=== PATIENT | male | born 1995 | race African-American/Black ===

== ENCOUNTER 2019-03-25 16:29 | Emergency (ER) | payer OTHER ==
[~2019-03-25] VITALS: Ht 160 cm; Wt 61.2 kg
[~2019-03-25 16:29] MED LIST: CEFADROXIL500 M1 PO; MOTRIN800 MG PO; NKHM; OMNICEF PO; inhaler
[2019-03-25 16:33] VITALS: BP 147/77
[2019-03-25 17:09] LABS: BASO % 0.5 % (0.0-1.0); EOS # 0.1 10*3/uL (0.0-0.4); EOS % 1.2 % (1.0-4.0); HEMATOCRIT 47.1 % (42.0-52.0); HEMOGLOBIN 16.1 g/dl (14.0-18.0); LYMPH # 1.6 10*3/uL (1.3-4.4); MEAN CELL VOLUME 87.2 fl (80.0-94.0); MEAN CORPUSCULAR HGB 29.8 pg (27.0-31.0); MEAN CORPUSCULAR HGB CONC 34.2 g/dl (33.0-37.0); MEAN PLATELET VOLUME 10.1 fl (9.6-12.3); MONO # 0.5 10*3/uL (0.1-1.0); NEUT # 5.3 10*3/uL (2.3-7.9); NEUT % 71.2 % (47.0-73.0); PLATELET COUNT AUTOMATED 174 10*3/uL (130-400); RED CELL DISTRI WIDTH 12.6 % (0-14.5); WHITE BLOOD COUNT 7.5 10*3/uL (4.8-10.8)
[2019-03-25 17:28] LABS: ALBUMIN 4.8 gm/dl (3.1-4.5); ALKALINE PHOSPHATASE 56 U/L (45-117); BUN 10 mg/dl (7-24); CHLORIDE 105 mmol/L (98-107); CREATININE 0.89 mg/dL (0.70-1.30); LIPASE 69 U/L (73-393); POTASSIUM 3.5 mmol/L (3.5-5.1); SGOT/AST 28 IU/L (3-35); SGPT/ALT 32 U/L (12-78); SODIUM 137 mmol/L (136-145); TOTAL PROTEIN 8.5 gm/dL (6.4-8.2)
[2019-03-25] MEDS ORDERED: DICYCLOMINE HCL10 MG PO (18:44)
== END 2019-03-25 18:54 | disposition home or self-care (01) ==
LOC: ED 16:29
PROVIDERS: Physician Assistant
DX: R19.7 Diarrhea, unspecified (principal); R11.2 Nausea with vomiting, unspecified; Z88.8 Allergy status to other drugs, medicaments and biological substances; Z79.899 Other long term (current) drug therapy

== ENCOUNTER 2019-12-10 15:05 | Emergency (ER) | payer OTHER ==
[~2019-12-10] VITALS: Ht 162.5 cm; Wt 72.6 kg
[~2019-12-10 15:05] MED LIST changes: +DICYCLOMINE HCL10 MG PO
[2019-12-10 15:30] VITALS: BP 124/54
[2019-12-10 16:41] LABS: BASO # 0.1 10*3/uL (0.0-0.1); BASO % 1.4 % (0.0-1.0); EOS # 0.1 10*3/uL (0.0-0.4); EOS % 2.5 % (1.0-4.0); HEMATOCRIT 42.4 % (42.0-52.0); LYMPH # 1.3 10*3/uL (1.3-4.4); LYMPH % 30.1 % (27.0-41.0); MEAN CELL VOLUME 89.3 fl (80.0-94.0); MEAN CORPUSCULAR HGB 29.7 pg (27.0-31.0); MEAN CORPUSCULAR HGB CONC 33.3 g/dl (33.0-37.0); MEAN PLATELET VOLUME 10.2 fl (9.6-12.3); MONO # 0.5 10*3/uL (0.1-1.0); MONO % 11.6 % (3.0-9.0); NEUT # 2.3 10*3/uL (2.3-7.9); NEUT % 53.9 % (47.0-73.0); PLATELET COUNT AUTOMATED 164 10*3/uL (130-400); RED BLOOD COUNT 4.75 10*6/uL (4.50-5.90); RED CELL DISTRI WIDTH 12.6 % (0-14.5); WHITE BLOOD COUNT 4.3 10*3/uL (4.8-10.8)
[2019-12-10 16:56] LABS: ALBUMIN 3.9 gm/dl (3.1-4.5); ALKALINE PHOSPHATASE 43 U/L (45-117); BUN 15 mg/dl (7-24); CHLORIDE 107 mmol/L (98-107); CREATININE 0.81 mg/dL (0.70-1.30); POTASSIUM 3.9 mmol/L (3.5-5.1); SGOT/AST 19 IU/L (3-35); SGPT/ALT 22 U/L (12-78); SODIUM 135 mmol/L (136-145); TOTAL PROTEIN 7.3 gm/dL (6.4-8.2)
[2019-12-10] MEDS ORDERED: ZOFRAN4 MG PO (18:06)
== END 2019-12-10 19:59 | disposition home or self-care (01) ==
LOC: ED 15:05
PROVIDERS: Nurse Practitioner
DX: K29.70 Gastritis, unspecified, without bleeding (principal); B34.9 Viral infection, unspecified

== ENCOUNTER → 2020-01-13 | Outpatient (CLI) | payer OTHER ==
[~2020-01-13] MED LIST changes: +ZOFRAN4 MG PO
== END | disposition home or self-care (01) ==
LOC: COVID19 02:11
PROVIDERS: ATTEND Student in an Organized Health Care Education/Training Program
DX: Z20.828 Contact with and (suspected) exposure to other viral communicable diseases (principal)

== ENCOUNTER 2021-07-26 12:20 | Emergency (ER) | payer OTHER ==
[~2021-07-26] VITALS: Ht 162.5 cm; Wt 65.8 kg
[2021-07-26 12:26] VITALS: BP 134/86
[2021-07-26] MEDS ORDERED: OMEPRAZOLE MAGN20 MG PO (13:51)
[2021-07-26] MEDS ORDERED: LISINOPRIL10 M1 PO (13:51)
== END 2021-07-26 13:49 | disposition home or self-care (01) ==
LOC: ED 12:20
DX: R51.9 Headache, unspecified (principal)

== ENCOUNTER 2023-04-02 19:49 | Emergency (ER) | payer OTHER ==
[~2023-04-02] VITALS: Ht 165.1 cm; Wt 74.8 kg
[~2023-04-02 19:49] MED LIST changes: +LISINOPRIL10 M1 PO; +OMEPRAZOLE MAGN20 MG PO
[2023-04-02 20:03] VITALS: BP 130/80
[2023-04-02] MEDS ORDERED: AMOX-CLAV 875-1 EACH PO (20:08)
== END 2023-04-02 20:56 | disposition home or self-care (01) ==
LOC: ED 19:49
DX: S51.832A Puncture wound without foreign body of left forearm, initial encounter (principal); F17.210 Nicotine dependence, cigarettes, uncomplicated; Z88.8 Allergy status to other drugs, medicaments and biological substances; W54.0XXA Bitten by dog, initial encounter; Y93.89 Activity, other specified; Y92.009 Unspecified place in unspecified non-institutional (private) residence as the place of occurrence of the external cause; Y99.8 Other external cause status

== ENCOUNTER 2024-04-02 16:45 | Emergency (ER) | payer OTHER ==
[~2024-04-02] VITALS: Wt 74.8 kg
[~2024-04-02 16:45] MED LIST changes: +AMOX-CLAV 875-1 EACH PO
[2024-04-02 17:32] VITALS: BP 146/82
[2024-04-02] MEDS ORDERED: CIPROFLOXACIN H10 ML OPH (17:59)
== END 2024-04-02 18:04 | disposition home or self-care (01) ==
LOC: ED 16:45
DX: S00.212A Abrasion of left eyelid and periocular area, initial encounter (principal); Z88.8 Allergy status to other drugs, medicaments and biological substances; X58.XXXA Exposure to other specified factors, initial encounter; Y93.89 Activity, other specified; Y92.89 Other specified places as the place of occurrence of the external cause; Y99.8 Other external cause status

== ENCOUNTER 2024-04-18 02:04 | Emergency (ER) | payer SELFPAY ==
[~2024-04-18] VITALS: Ht 170.1 cm; Wt 61.2 kg
[~2024-04-18 02:04] MED LIST changes: +CIPROFLOXACIN H10 ML OPH
[2024-04-18 02:10] VITALS: BP 160/95
[2024-04-18] MEDS ORDERED: LISSAMINE GREEN 1.5 MG STRIP OP ONE (02:15)
[2024-04-18] MEDS ORDERED: Tetracaine Hydrochloride 0.5% 4 ML BOT OPH ONE (02:15)
[2024-04-18] MEDS ORDERED: Dexamethasone/Tobramycin OPHTHALMIC 2.5 ML BOTTLE OPH ONE (02:40)
== END 2024-04-18 02:55 | disposition home or self-care (01) ==
LOC: ED 02:04
DX: S05.02XA Injury of conjunctiva and corneal abrasion without foreign body, left eye, initial encounter (principal); Z88.8 Allergy status to other drugs, medicaments and biological substances; X58.XXXA Exposure to other specified factors, initial encounter; Y93.89 Activity, other specified; Y92.009 Unspecified place in unspecified non-institutional (private) residence as the place of occurrence of the external cause; Y99.8 Other external cause status

== ENCOUNTER → 2024-09-18 | Outpatient (CLI) | payer OTHER | END | disposition home or self-care (01) | LOC: RAD 11:56 | PROVIDERS: ATTEND Family Medicine | DX: J45.909 Unspecified asthma, uncomplicated (principal); Z56.1 Change of job ==

== ENCOUNTER 2024-11-14 15:41 | Emergency (ER) | payer OTHER ==
[~2024-11-14] VITALS: Ht 162.5 cm; Wt 74.8 kg
[2024-11-14 15:46] VITALS: BP 150/89
[2024-11-14] MEDS ORDERED: LISINOPRIL20 MG PO (15:46)
[2024-11-14] MEDS ORDERED: SODIUM CHLORIDE 0.9% 1,000 ML IV ONE (16:05)
[2024-11-14] MEDS ORDERED: diphenhydrAMINE hydrochloride 50 MG/ML VIAL IV ONE (16:05)
[2024-11-14] MEDS ORDERED: Metoclopramide Hydrochloride 10 MG/2 ML VIAL IV ONE (16:05)
[2024-11-14 16:15] LABS: BASO # 0.1 10*3/uL (0.0-0.1); BASO % 1.1 % (0.0-1.0); EOS # 0.1 10*3/uL (0.0-0.4); EOS % 2.3 % (1.0-4.0); MEAN CELL VOLUME 90.4 fl (80.0-94.0); MEAN CORPUSCULAR HGB 30.7 pg (27.0-31.0); MEAN PLATELET VOLUME 9.4 fl (9.6-12.3); MONO # 0.5 10*3/uL (0.1-1.0); MONO % 8.5 % (3.0-9.0); NEUT # 3.1 10*3/uL (2.3-7.9); NEUT % 56.4 % (47.0-73.0); NUCLEATED RED BLOOD CELL 0.0 % (0.0-0.0); NUCLEATED RED BLOOD CELL 0.0 10*3/uL (0.0-0.0); PLATELET COUNT AUTOMATED 178 10*3/uL (130-400); RED CELL DISTRI WIDTH 12.8 % (0-14.5)
[2024-11-14 16:39] LABS: BUN 6 mg/dl (9-23); SGPT/ALT 21 U/L (5-49)
[2024-11-14] MEDS ORDERED: MG-AL HYDROXIDE/SIMETICONE 30 ML UDC PO STA (17:16)
[2024-11-14] MEDS ORDERED: Dicyclomine Hydrochloride 20 MG/10 ML OSYR PO STA (17:16)
[2024-11-14] MEDS ORDERED: HEARTBURN RELIE20 MG PO (17:44)
[2024-11-14] MEDS ORDERED: Ondansetron4 MG PO (17:47)
== END 2024-11-14 18:09 | disposition home or self-care (01) ==
LOC: ED 15:41
PROVIDERS: Nurse Practitioner Family
DX: K21.9 Gastro-esophageal reflux disease without esophagitis (principal); J45.909 Unspecified asthma, uncomplicated; R11.2 Nausea with vomiting, unspecified; Z87.19 Personal history of other diseases of the digestive system; Z91.018 Allergy to other foods; Z20.822 Contact with and (suspected) exposure to COVID-19

== ENCOUNTER 2024-11-20 12:46 | Emergency (ER) | payer SELFPAY ==
[~2024-11-20] VITALS: Ht 162.5 cm; Wt 72.6 kg
[~2024-11-20 12:46] MED LIST changes: +HEARTBURN RELIE20 MG PO; +LISINOPRIL20 MG PO; +Ondansetron4 MG PO
[2024-11-20 12:54] VITALS: BP 151/80
[2024-11-20] MEDS ORDERED: Ondansetron Hydrochloride 4 MG TAB PO ONE (13:15)
[2024-11-20] MEDS ORDERED: AZITHROMYCIN 250 ML IV ONE (13:15)
[2024-11-20 13:23] LABS: BASO # 0.1 10*3/uL (0.0-0.1); BASO % 1.1 % (0.0-1.0); EOS # 0.1 10*3/uL (0.0-0.4); EOS % 1.2 % (1.0-4.0); MEAN CELL VOLUME 90.7 fl (80.0-94.0); MEAN CORPUSCULAR HGB 30.8 pg (27.0-31.0); MEAN PLATELET VOLUME 9.2 fl (9.6-12.3); MONO # 0.6 10*3/uL (0.1-1.0); MONO % 7.3 % (3.0-9.0); NEUT # 4.7 10*3/uL (2.3-7.9); NEUT % 62.0 % (47.0-73.0); NUCLEATED RED BLOOD CELL 0.0 % (0.0-0.0); NUCLEATED RED BLOOD CELL 0.0 10*3/uL (0.0-0.0); PLATELET COUNT AUTOMATED 225 10*3/uL (130-400); RED CELL DISTRI WIDTH 13.0 % (0-14.5)
[2024-11-20 13:47] LABS: BUN 11 mg/dl (9-23); SGPT/ALT 20 U/L (5-49)
[2024-11-20] MEDS ORDERED: Ondansetron4 MG PO (14:26)
[2024-11-20] MEDS ORDERED: ZITHROMAX250 MG PO (14:26)
== END 2024-11-20 14:44 | disposition home or self-care (01) ==
LOC: ED 12:46
PROVIDERS: Emergency Medicine
DX: J20.9 Acute bronchitis, unspecified (principal); R11.2 Nausea with vomiting, unspecified; R10.13 Epigastric pain; K21.9 Gastro-esophageal reflux disease without esophagitis; Z88.8 Allergy status to other drugs, medicaments and biological substances; Z79.899 Other long term (current) drug therapy